=== PATIENT | female | born 1945 | race Caucasian/White ===

== ENCOUNTER → 2016-11-13 | Outpatient (CLI) | payer MEDICARE, OTHER ==
--- NOTE | 2016-11-13 09:23 | REPMRS ---
Patient History The patient states she has not had a clinical breast exam in over a year. No known family history of cancer. Digital Mammo Screening Bilat: November 13, 2016 - Exam #: [id number] Bilateral CC and MLO view(s) were taken. Technologist: Malissa Ramírez, Technologist Prior study comparison: November 10, 2015, bilateral digital mammo screening bilat performed at [facility]. October 18, 2014, bilateral digital mammo screening bilat performed at [facility]. FINDINGS: There are scattered fibroglandular densities. There has been no change in the appearance of the mammogram from the prior studies. There is a mild amount of residual fibroglandular tissue which is fairly symmetric. There is no interval development of dominant mass, architectural distortion, or clustered microcalcification suggestive of malignancy. ASSESSMENT: BI-RADS/ACR category 1 mammogram. Negative. Recommendation Routine screening mammogram in 1 year (for women over age 40). This mammogram was interpreted with the aid of an FDA-approved computer-aided dectection system. Electronically Signed By: Ethan Kaufman MD 11/13/16 0923
== END ==
LOC: M RAD 08:15
PROVIDERS: ATTEND Nurse Practitioner Family
DX: Z12.31 Encounter for screening mammogram for malignant neoplasm of breast (principal)

== ENCOUNTER → 2017-09-10 | Outpatient (REF) | payer MEDICARE, OTHER | LOC: M LAB REF 18:07 | DX: D23.12 Other benign neoplasm of skin of left eyelid, including canthus (principal) | CPT/HCPCS: 88305 ==

== ENCOUNTER → 2017-11-14 | Outpatient (CLI) | payer MEDICARE, OTHER | LOC: M RAD 09:55 | DX: N64.59 Other signs and symptoms in breast (principal) | CPT/HCPCS: 77066 ==

== ENCOUNTER → 2018-11-18 | Outpatient (CLI) | payer MEDICARE, OTHER ==
--- NOTE | 2018-11-18 15:15 | REPMRS ---
Patient History The patient states she has not had a clinical breast exam in over a year. No known family history of cancer. 3D TOMOSYNTHESIS WAS PERFORMED. Digital Mammo Screening Bilat: November 18, 2018 - Exam #: [id number] Bilateral CC and MLO view(s) were taken. Technologist: Mee Camacho, Technologist Prior study comparison: November 14, 2017, digital mammo diagnostic bilateral performed at [facility]. November 13, 2016, bilateral digital mammo screening bilat performed at [facility]. FINDINGS: There are scattered fibroglandular densities. There has been no change in the appearance of the mammogram from the prior studies. There is a mild amount of residual fibroglandular tissue which is fairly symmetric. There is no interval development of dominant mass, architectural distortion, or clustered microcalcification suggestive of malignancy. Assessment: BI-RADS/ACR category 1 mammogram. Negative Mammogram. Recommendation Routine screening mammogram in 1 year (for women over age 40). This mammogram was interpreted with the aid of an FDA-approved computer-aided dectection system. Electronically Signed By: Ethan Kaufman MD 11/18/18 0371
== END ==
LOC: M RAD 14:21
PROVIDERS: ATTEND Internal Medicine
DX: Z12.31 Encounter for screening mammogram for malignant neoplasm of breast (principal)

== ENCOUNTER → 2019-06-05 | Outpatient (REF) | payer MEDICARE, OTHER ==
[2019-06-09 00:06] LABS: Lyme Disease IgG/IgM Antibodie <0.91 ISR (0.00-0.90); Lyme Disease IgM Ab Quantitati <0.80 index (0.00-0.79)
== END ==
LOC: M LAB REF 16:50
PROVIDERS: ATTEND Registered Nurse
DX: D48.5 Neoplasm of uncertain behavior of skin (principal); S30.861A Insect bite (nonvenomous) of abdominal wall, initial encounter

== ENCOUNTER → 2020-04-08 | Outpatient (CLI) | payer MEDICARE, OTHER ==
--- NOTE | 2020-04-26 08:33 | REPMRS ---
Patient History The patient states she has not had a clinical breast exam in over a year. No known family history of cancer. Digital Woman Screen Mammo: April 08, 2020 - Exam #: [id number] Bilateral CC and MLO view(s) were taken. Technologist: Malissa Ramírez, Technologist Prior study comparison: November 18, 2018, bilateral digital mammo screening bilat performed at [facility]. November 14, 2017, digital mammo diagnostic bilateral performed at [facility]. November 13, 2016, bilateral digital mammo screening bilat performed at [facility]. FINDINGS: The breast tissue is almost entirely fat. The Volpara volumetric breast density category is: A. There has been no change in the appearance of the mammogram from the prior studies. There is no interval development of dominant mass, architectural distortion, or grouped microcalcification typical of malignancy. 3-D tomosynthesis shows no additional findings. Assessment: BI-RADS/ACR category 1 mammogram. Negative Mammogram. Recommendation Routine screening mammogram of both breasts in 1 year (for women over age 40). This patient's Lifetime Breast Cancer RIsk is estimated at 2.9 %. This mammogram was interpreted with the aid of an FDA-approved computer-aided dectection system. Electronically Signed By: Miguel Adame MD 04/26/20 0891
== END ==
LOC: M WHC 13:17
PROVIDERS: ATTEND Internal Medicine
DX: Z12.31 Encounter for screening mammogram for malignant neoplasm of breast (principal)

== ENCOUNTER → 2021-05-09 | Outpatient (CLI) | payer MEDICARE, OTHER ==
--- NOTE | 2021-05-09 15:19 | REPMRS ---
Patient History The patient states she has not had a clinical breast exam in over a year. No known family history of cancer. 10 lb unintentional weight loss. Moderna vaccine 10/27/20 left arm. 11/29/20 left arm. Patient states no breast complaints today. Patient has signed MRS History Sheet. Digital Woman Screen Mammo: May 09, 2021 - Exam #: [id number] Bilateral CC and MLO view(s) were taken. Technologist: RT Timo Prior study comparison: April 08, 2020, bilateral digital woman screen mammo performed at [facility]. November 18, 2018, bilateral digital mammo screening bilat, performed at [facility]. FINDINGS: There are scattered fibroglandular densities. Screening. Digital screening (2D) mammography was performed bilaterally in the CC and MLO projections. Additionally, breast tomosynthesis (3D mammography) was performed bilaterally in the CC and MLO projections. Todays exam was compared to the prior exam/exams. By history, the patient has no complaints of a palpable breast abnormality or other significant breast complaints. The breasts are unchanged in size and shape. There are no teofilo-soft tissue densities or spiculated masses. There is no internal architectural distortion. Once again, stable benign appearing calcifications are seen.There are no suspicious teofilo-calcific clusters. Skin thickening or nipple retraction is not present. IMPRESSION: BI-RADS Category 2- Benign Findings. There is no evidence of malignant alteration of the breasts. Followup examination recommended in one year. The Volpara volumetric breast density category is B, there are scattered areas of fibroglandular densities. This mammogram was read with the assistance of [facility] zumatek,an FDA approved computer aided detection system for mammography. The lifetime Tyrer-Cuzick score is 2.6 % Negative x-ray reports should not delay surgical consultation if a dominant or clinically suspicious mass is present. Not all breast cancers can be identified by mammography. Therefore, we recommend that you continue to perform regular breast self-examination and physical examination and then promptly contact your physician of any concerns or changes. Adenosis and dense breasts may obscure an underlying neoplasm. Assessment: BI-RADS/ACR category 2 mammogram. Benign Findings. Recommendation Routine screening mammogram of both breasts in 1 year. Electronically Signed By: Jaime Uribe DO 05/09/21 [id number]
== END ==
LOC: M WHC 11:09
PROVIDERS: ATTEND Internal Medicine
DX: Z12.31 Encounter for screening mammogram for malignant neoplasm of breast (principal)

== ENCOUNTER → 2022-06-13 | Outpatient (CLI) | payer MEDICARE, OTHER ==
[~2022-06-13] MED LIST: ADV250INH; ALBU90AE; FAMO1TAB11; FURO20TA2; LEVOTAB10; LOSA25TA13; METF500T13; MONT10TA97 PO; OMEP40CA4 PO; POTA1TAB24 PO; PRAD150C6; ROSU40TA4; SERT25TA21; TIAZ1CAP2; TIAZ1CAP4; XYZASOL2 PO
== END ==
LOC: M LABSMTC 09:56
PROVIDERS: ATTEND Anesthesiology
DX: Z01.812 Encounter for preprocedural laboratory examination (principal); Z20.822 Contact with and (suspected) exposure to COVID-19

== ENCOUNTER 2022-06-18 08:20 | Day surgery (SDC) | payer MEDICARE, OTHER ==
[~2022-06-18] VITALS: Ht 162.6 cm; Wt 95.4 kg
[~2022-06-18 08:20] MED LIST changes: +LIDOCAINE 1% 1ML PF SYRINGE (OR EYE CASES) As Ordered ONE; +LR 1,000 ML IV SCH; +PHENYLEPHRINE 2.5% OPHTH SOL 2ML OD SCH
[2022-06-18] MEDS: TETRACAINE 0.5% OPHTH SOLN 4ML OD SCH ×2 (08:49→09:09)
[2022-06-18] MEDS: FLURBIPROFEN 0.03% OPHTH SOLN 2.5 ML OD SCH ×2 (09:08→09:09)
[2022-06-18] MEDS: CYCLOPENTOLATE 1% OPHTH SOLN 2 ML BTL OD SCH ×2 (09:08→09:09)
[2022-06-18] MEDS ORDERED: fentaNYL 100 MCG/2 ML INJECTION As Ordered ONE (09:35)
[2022-06-18] MEDS ORDERED: MIDAZOLAM INJ 2MG/2ML VIAL (J2250 PER 1MG) As Ordered ONE (09:35)
[2022-06-18 10:54] VITALS: BP 139/65
== END 2022-06-18 11:15 | disposition home or self-care (01) ==
LOC: M SDC 08:20
PROVIDERS: ATTEND Ophthalmology
DX: H25.11 Age-related nuclear cataract, right eye (principal); I11.9 Hypertensive heart disease without heart failure; J45.909 Unspecified asthma, uncomplicated; Z86.73 Personal history of transient ischemic attack (TIA), and cerebral infarction without residual deficits; Z79.899 Other long term (current) drug therapy; Z79.01 Long term (current) use of anticoagulants; Z79.51 Long term (current) use of inhaled steroids; Z88.2 Allergy status to sulfonamides
CPT/HCPCS: 66984; J2250; J3010; V2632

== ENCOUNTER → 2022-07-11 | Outpatient (CLI) | payer MEDICARE, OTHER ==
[~2022-07-11] MED LIST changes: -LIDOCAINE 1% 1ML PF SYRINGE (OR EYE CASES) As Ordered ONE; -LR 1,000 ML IV SCH; -PHENYLEPHRINE 2.5% OPHTH SOL 2ML OD SCH
== END ==
LOC: M LABSMTC 10:51
PROVIDERS: ATTEND Anesthesiology
DX: Z01.812 Encounter for preprocedural laboratory examination (principal); Z11.52 Encounter for screening for COVID-19

== ENCOUNTER → 2022-08-03 | Outpatient (CLI) | payer MEDICARE, OTHER ==
[~2022-08-03] MED LIST changes: -ADV250INH; +ADV250INH INH; -ALBU90AE; +ALBU90AE INH; -FURO20TA2; +FURO20TA2 PO; -LOSA25TA13; +LOSA25TA13 PO; -METF500T13; +METF500T13 PO; -PRAD150C6; +PRAD150C6 PO; -ROSU40TA4; +ROSU40TA4 PO; -SERT25TA21; +SERT25TA21 PO; -TIAZ1CAP2; +TIAZ1CAP2 PO; -TIAZ1CAP4; +TIAZ1CAP4 PO
== END ==
LOC: M WHC 12:55
PROVIDERS: ATTEND Internal Medicine
DX: Z12.31 Encounter for screening mammogram for malignant neoplasm of breast (principal)

== ENCOUNTER → 2022-08-08 | Outpatient (CLI) | payer MEDICARE, OTHER | LOC: M LABSMTC 09:49 | PROVIDERS: ATTEND Anesthesiology | DX: Z01.812 Encounter for preprocedural laboratory examination (principal); Z11.52 Encounter for screening for COVID-19 ==

== ENCOUNTER → 2022-09-12 | Outpatient (CLI) | payer MEDICARE, OTHER | LOC: M LABSMTC 11:09 | PROVIDERS: ATTEND Anesthesiology | DX: Z01.812 Encounter for preprocedural laboratory examination (principal); Z20.822 Contact with and (suspected) exposure to COVID-19 ==

== ENCOUNTER 2022-09-17 06:43 | Day surgery (SDC) | payer MEDICARE, OTHER ==
[~2022-09-17] VITALS: Ht 162.6 cm; Wt 99.8 kg
[~2022-09-17 06:43] MED LIST changes: +CYCLOPENTOLATE 1% OPHTH SOLN 2ML BTL OS SCH; +FLURBIPROFEN 0.03% OPHTH SOLN 2.5 ML OS SCH; +LIDOCAINE 1% SDV 5ML VIAL As Ordered ONE; +PHENYLEPHRINE 2.5% OPHTH SOL 2ML OS SCH; +TETRACAINE 0.5% OPHTH SOLN 4ML OS SCH
[2022-09-17] MEDS ORDERED: LR 1,000 ML IV SCH (07:00)
[2022-09-17] MEDS ORDERED: MIDAZOLAM INJ 2MG/2ML VIAL As Ordered ONE (08:41)
[2022-09-17] MEDS ORDERED: ESMOLOL INJ 100MG/10ML VIAL As Ordered ONE (08:44)
[2022-09-17] MEDS ORDERED: hydrALAZINE 20MG/ML 1ML VIAL As Ordered ONE (08:54)
[2022-09-17 09:51] VITALS: BP 136/81
== END 2022-09-17 09:51 | disposition home or self-care (01) ==
LOC: M SDC 06:43
PROVIDERS: ATTEND Ophthalmology
DX: H25.812 Combined forms of age-related cataract, left eye (principal); I48.91 Unspecified atrial fibrillation; E11.9 Type 2 diabetes mellitus without complications; Z88.8 Allergy status to other drugs, medicaments and biological substances; Z79.84 Long term (current) use of oral hypoglycemic drugs; Z79.899 Other long term (current) drug therapy
CPT/HCPCS: 66984; V2632

== ENCOUNTER → 2023-08-27 | Outpatient (CLI) | payer OTHER ==
[~2023-08-27] MED LIST changes: -CYCLOPENTOLATE 1% OPHTH SOLN 2ML BTL OS SCH; -FLURBIPROFEN 0.03% OPHTH SOLN 2.5 ML OS SCH; -LIDOCAINE 1% SDV 5ML VIAL As Ordered ONE; -PHENYLEPHRINE 2.5% OPHTH SOL 2ML OS SCH; -TETRACAINE 0.5% OPHTH SOLN 4ML OS SCH
== END ==
LOC: M WHC 11:10
PROVIDERS: ATTEND Internal Medicine
DX: Z12.31 Encounter for screening mammogram for malignant neoplasm of breast (principal)

== ENCOUNTER → 2023-10-17 | Outpatient (REF) | payer OTHER ==
[2023-10-17 15:42] LABS: RSV AMPLIFICATION NEGATIVE (NEGATIVE)
== END ==
LOC: M LAB REF 14:25
PROVIDERS: ATTEND Nurse Practitioner Family
DX: R06.02 Shortness of breath (principal); R06.2 Wheezing; I27.20 Pulmonary hypertension, unspecified

== ENCOUNTER → 2023-10-19 | Outpatient (CLI) | payer OTHER | LOC: M RAD 13:42 | PROVIDERS: ATTEND Internal Medicine | DX: I27.20 Pulmonary hypertension, unspecified (principal) ==

== ENCOUNTER 2023-11-28 22:22 | Inpatient (IN) | payer OTHER ==
[~2023-11-28] VITALS: Ht 165.1 cm; Wt 92.0 kg
[2023-11-29] VITALS (14 sets, daily range): BP systolic 128–176; BP diastolic 66–106; TEMP 97.4–97.8; O2SAT 89–96
[2023-11-29 02:13] LABS: BASO % 0.7 % (0.0-1.0); EOS # 0.2 10^3/uL (0.0-0.5); HEMATOCRIT 45.9 % (36.0-47.0); LYMPH # 0.8 10^3/uL (1.5-5.0); LYMPH % 14.7 % (24.0-44.0); MEAN CORPUSCULAR HEMOGLOBIN 28.6 pg (27.0-33.0); MEAN CORPUSCULAR HGB CONC 32.7 g/dl (32.0-36.5); MEAN CORPUSCULAR VOLUME 87.6 fl (80.0-96.0); MONO # 0.5 10^3/uL (0.0-0.8); MONO % 8.4 % (2.0-8.0); NEUTROPHILS # 3.9 10^3/uL (1.5-8.5); NEUTROPHILS % 71.8 % (36.0-66.0); PLATELET COUNT, AUTOMATED 233 10^3/uL (150-450); RED BLOOD COUNT 5.24 10^6/uL (4.00-5.40); WHITE BLOOD COUNT 5.5 10^3/uL (4.0-10.0)
[2023-11-29 02:39] LABS: ALBUMIN 3.6 G/DL (3.2-5.2); ALKALINE PHOSPHATASE 75 U/L (46-116); ALT/SGPT 11 U/L (7.0-40); AST/SGOT 19 U/L (<34); BILIRUBIN,DIRECT 0.3 MG/DL (<0.4); BILIRUBIN,TOTAL 0.8 MG/DL (0.3-1.2); BLOOD UREA NITROGEN 12 MG/DL (9-23); CALCIUM LEVEL 8.6 MG/DL (8.3-10.6); CARBON DIOXIDE LEVEL 26 MMOL/L (20-31); CHLORIDE LEVEL 98 MMOL/L (98-107); CK-MB VALUE MASS 3.7 NG/ML (<3.6); CPK CREATINE PHOSPHOKINASE 119 U/L (34-145); CREATININE FOR GFR 0.87 MG/DL (0.55-1.30); GLOMERULAR FILTRATION RATE > 60.0 (>39); GLUCOSE, FASTING 151 MG/DL (74-106); POTASSIUM SERUM 3.5 MMOL/L (3.5-5.1); SODIUM LEVEL 132 MMOL/L (136-145); TOTAL PROTEIN 7.1 G/DL (5.7-8.2)
[2023-11-29] MEDS ORDERED: ISOVUE-370 76% 100ML VIAL As Ordered ONE (03:12)
[2023-11-29] MEDS: PIPERACILLIN/TAZOBACTAM SOD 4.5 GM in D5W MINI-BAG PLUS 50 ML IV ONE (03:15)
[2023-11-29] MEDS: dilTIAZem 25MG/5ML VIAL IV STA (03:18)
[2023-11-29] MEDS: FUROSEMIDE 40MG/4ML VIAL IV ONE (03:18)
[2023-11-29] MEDS: ACETAMINOPHEN TAB 650MG DOSE (2X325MG) PO ONE (03:18)
[2023-11-29] MEDS: IPRATROPIUM 0.5MG/ALBUTEROL 2.5MG INH SOL UD 3ML (DUONEB) NEB ONE (03:58)
[2023-11-29] MEDS ORDERED: MOM 30ML SUSPENSION UDC PO PRN (05:30)
[2023-11-29] MEDS ORDERED: MAALOX 30 ML SUSP *UDC PO PRN (05:30)
[2023-11-29] MEDS: AZITHROMYCIN 250MG TABLET PO SCH (06:26)
[2023-11-29] MEDS: cefTRIAXone SOD 1 GM in D5W MINI-BAG PLUS 50 ML IV SCH (06:26)
[2023-11-29] MEDS: methylPREDNISolone 40MG 1ML VIAL IV SCH (06:26)
[2023-11-29 06:33] LABS: THYROID STIMULATING HORMONE 4.333 uIU/ML (0.55-4.78)
[2023-11-29 06:36] LABS: HEMOGLOBIN A1c 6.9 % (4.0-6.0)
[2023-11-29 07:10] LABS: VENOUS BASE EXCESS 0.1 (-2.0-2.0); VENOUS HCO3 24.7 MMOL/L (23.0-27.0); VENOUS PARTIAL PRESSURE CO2 40.2 mmHg (38.0-50.0); VENOUS PARTIAL PRESSURE O2 62.6 mmHg (30.0-50.0); VENOUS PH 7.407 UNITS (7.330-7.430); VENOUS STANDARD HCO3 24.5 MMOL/L
[2023-11-29 07:24] LABS: HEMATOCRIT 43.4 % (36.0-47.0); MEAN CORPUSCULAR HEMOGLOBIN 28.4 pg (27.0-33.0); MEAN CORPUSCULAR HGB CONC 32.3 g/dl (32.0-36.5); PLATELET COUNT, AUTOMATED 219 10^3/uL (150-450); RED BLOOD COUNT 4.93 10^6/uL (4.00-5.40); WHITE BLOOD COUNT 5.8 10^3/uL (4.0-10.0)
[2023-11-29] MEDS ORDERED: MED REC IN PROGRESS XX SCH (07:25)
[2023-11-29 07:41] LABS: CPK CREATINE PHOSPHOKINASE 107 U/L (34-145)
[2023-11-29 07:42] LABS: ALBUMIN 3.2 G/DL (3.2-5.2); ALKALINE PHOSPHATASE 67 U/L (46-116); ALT/SGPT 11 U/L (7.0-40); AST/SGOT 19 U/L (<34); BILIRUBIN,TOTAL 1.1 MG/DL (0.3-1.2); BLOOD UREA NITROGEN 12 MG/DL (9-23); CARBON DIOXIDE LEVEL 27 MMOL/L (20-31); CHLORIDE LEVEL 98 MMOL/L (98-107); CK-MB VALUE MASS 4.8 NG/ML (<3.6); CREATININE FOR GFR 0.94 MG/DL (0.55-1.30); GLOMERULAR FILTRATION RATE > 60.0 (>39); GLUCOSE, FASTING 203 MG/DL (74-106); MB/CK RELATIVE INDEX 4.48 (< OR =4); POTASSIUM SERUM 3.1 MMOL/L (3.5-5.1); SODIUM LEVEL 132 MMOL/L (136-145); TOTAL PROTEIN 6.6 G/DL (5.7-8.2)
[2023-11-29] MEDS: ADVAIR HFA 115/21MCG INHALER INH SCH (08:00)
[2023-11-29] MEDS ORDERED: DILT180C38 PO (09:08)
[2023-11-29] MEDS ORDERED: ALBU8.5H INH (09:08)
[2023-11-29] MEDS ORDERED: FAMO1TAB11 PO (09:08)
[2023-11-29] MEDS ORDERED: DILT1TAB12 PO (09:08)
[2023-11-29] MEDS ORDERED: FLON1SPR NARES (09:08)
[2023-11-29] MEDS ORDERED: LOSA50TA28 PO (09:08)
[2023-11-29] MEDS ORDERED: LEVOTAB10 PO (09:08)
[2023-11-29] MEDS ORDERED: FLUT1BLS2 INH (09:08)
[2023-11-29] MEDS: IPRATROPIUM 0.5MG/ALBUTEROL 2.5MG INH SOL UD 3ML (DUONEB) INH SCH (09:09)
[2023-11-29] MEDS ORDERED: HOME MED LIST COMPLETE! XX SCH (09:10)
[2023-11-29] MEDS: PANTOPRAZOLE 40MG TAB (PROTONIX) PO SCH (10:01)
[2023-11-29] MEDS: guaiFENesin ER TABLET 600 MG TAB PO SCH (10:01)
[2023-11-29] MEDS: DOCUSATE SODIUM 100MG CAPSULE PO SCH (10:01)
[2023-11-29] MEDS: FUROSEMIDE 20MG/2ML VIAL IV SCH (10:02)
[2023-11-29] MEDS: NYSTATIN 100,000 UNITS/GM TOPICAL PWD 15GM TOP SCH (10:44)
[2023-11-29] MEDS: dilTIAZem **CD** 180MG CAP PO SCH (10:44)
[2023-11-29] MEDS: DABIGATRAN ETEXILATE 75 MG CAP (PRADAXA) PO SCH (10:45)
[2023-11-29] MEDS: SERTRALINE HCL 25 MG TABLET PO SCH (10:45)
[2023-11-29] MEDS: POTASSIUM CHLORIDE 10% LIQ 20MEQ/15ML UDC PO SCH ×2 (10:49→15:35)
[2023-11-29] MEDS: LOSARTAN 50MG TABLET PO SCH (10:50)
[2023-11-29] MEDS: MONTELUKAST 10 MG TAB PO SCH (10:50)
[2023-11-29] MEDS: ROSUVASTATIN 10 MG TAB (CRESTOR) PO SCH (10:50)
[2023-11-29] MEDS: FAMOTIDINE 20 MG TAB PO SCH (10:51)
[2023-11-29] MEDS: hydrALAZINE 20MG/ML 1ML VIAL IV PRN (15:35)
[2023-11-29] MEDS: ACETAMINOPHEN TAB 650MG DOSE (2X325MG) PO PRN (15:36)
[2023-11-29] MEDS: hydrALAZINE 20MG/ML 1ML VIAL IV ONE (19:30)
[2023-11-29] MEDS ORDERED: MONTELUKAST 10 MG TAB PO SCH (21:00)
[2023-11-30] VITALS (28 sets, daily range): BP systolic 56–156; BP diastolic 58–88; TEMP 97.4–97.8; O2SAT 88–95
[2023-11-30 06:24] LABS: HEMOGLOBIN 15.4 g/dl (12.0-15.5); MEAN CORPUSCULAR HEMOGLOBIN 28.8 pg (27.0-33.0); MEAN CORPUSCULAR HGB CONC 32.8 g/dl (32.0-36.5); PLATELET COUNT, AUTOMATED 235 10^3/uL (150-450); RED BLOOD COUNT 5.34 10^6/uL (4.00-5.40); WHITE BLOOD COUNT 4.8 10^3/uL (4.0-10.0)
[2023-11-30 06:43] LABS: ALBUMIN 3.4 G/DL (3.2-5.2); ALKALINE PHOSPHATASE 64 U/L (46-116); ALT/SGPT < 9 U/L (7.0-40); AST/SGOT 17 U/L (<34); BILIRUBIN,TOTAL 0.6 MG/DL (0.3-1.2); BLOOD UREA NITROGEN 19 MG/DL (9-23); CALCIUM LEVEL 8.7 MG/DL (8.3-10.6); CARBON DIOXIDE LEVEL 27 MMOL/L (20-31); CHLORIDE LEVEL 100 MMOL/L (98-107); CREATININE FOR GFR 1.03 MG/DL (0.55-1.30); GLUCOSE, FASTING 251 MG/DL (74-106); POTASSIUM SERUM 3.5 MMOL/L (3.5-5.1); SODIUM LEVEL 133 MMOL/L (136-145); TOTAL PROTEIN 7.2 G/DL (5.7-8.2)
[2023-11-30] MEDS ORDERED: GLUCOSE 4GM CHEW TABLET PO PRN (07:05)
[2023-11-30] MEDS ORDERED: GLUCAGON INJ 1MG VIAL SC PRN (07:05)
[2023-11-30] MEDS ORDERED: DEXTROSE 50% 50ML SYRINGE IV PRN (07:05)
[2023-11-30] MEDS: INSULIN LISPRO (NovoLOG) PER UNIT SC SCH ×2 (09:01→20:24)
[2023-11-30] MEDS: OMEPRAZOLE 20MG CAP PO SCH (09:02)
[2023-11-30] MEDS: dilTIAZem 60 MG TAB PO SCH (09:03)
[2023-11-30] MEDS: LEVEMIR (INSULIN DETEMIR) 1 UNITS/0.01ML SC SCH (16:29)
[2023-12-01] VITALS (14 sets, daily range): BP systolic 146–162; BP diastolic 70–86; TEMP 97–97.7; O2SAT 90–95
[2023-12-01 05:59] LABS: HEMATOCRIT 45.2 % (36.0-47.0); HEMOGLOBIN 14.9 g/dl (12.0-15.5); MEAN CORPUSCULAR HEMOGLOBIN 28.5 pg (27.0-33.0); MEAN CORPUSCULAR VOLUME 86.4 fl (80.0-96.0); PLATELET COUNT, AUTOMATED 242 10^3/uL (150-450); RED BLOOD COUNT 5.23 10^6/uL (4.00-5.40); WHITE BLOOD COUNT 9.6 10^3/uL (4.0-10.0)
[2023-12-01 06:29] LABS: ALBUMIN 3.3 G/DL (3.2-5.2); BILIRUBIN,TOTAL 0.5 MG/DL (0.3-1.2); CALCIUM LEVEL 8.7 MG/DL (8.3-10.6); CREATININE FOR GFR 1.22 MG/DL (0.55-1.30); GLOMERULAR FILTRATION RATE 45.3 (>39); POTASSIUM SERUM 3.9 MMOL/L (3.5-5.1); TOTAL PROTEIN 6.5 G/DL (5.7-8.2)
[2023-12-01] MEDS: predniSONE 20 MG TAB PO SCH (08:45)
[2023-12-01] MEDS: FUROSEMIDE 20 MG TAB PO SCH (08:45)
[2023-12-01] MEDS: ALBUTEROL SULFATE 2.5MG/0.5ML INH NEB SOLN NEB PRN (21:17)
[2023-12-02 03:58] VITALS: BP 155/78; TEMP 97.6; O2SAT 95
[2023-12-02 04:44] LABS: HEMATOCRIT 42.8 % (36.0-47.0); HEMOGLOBIN 14.1 g/dl (12.0-15.5); MEAN CORPUSCULAR HEMOGLOBIN 28.4 pg (27.0-33.0); MEAN CORPUSCULAR HGB CONC 32.9 g/dl (32.0-36.5); MEAN CORPUSCULAR VOLUME 86.1 fl (80.0-96.0); PLATELET COUNT, AUTOMATED 256 10^3/uL (150-450); RED BLOOD COUNT 4.97 10^6/uL (4.00-5.40); WHITE BLOOD COUNT 11.9 10^3/uL (4.0-10.0)
[2023-12-02 05:22] LABS: ALBUMIN 3.1 G/DL (3.2-5.2); BILIRUBIN,TOTAL 0.4 MG/DL (0.3-1.2); CALCIUM LEVEL 7.9 MG/DL (8.3-10.6); CREATININE FOR GFR 1.33 MG/DL (0.55-1.30); POTASSIUM SERUM 4.2 MMOL/L (3.5-5.1); TOTAL PROTEIN 6.3 G/DL (5.7-8.2)
[2023-12-02] MEDS: NS 1,000 ML IV SCH (07:27)
[2023-12-02 07:43] VITALS: BP 146/72; TEMP 97.4; O2SAT 95
[2023-12-02] MEDS: LEVEMIR (INSULIN DETEMIR) 1 UNITS/0.01ML SC SCH (08:57)
[2023-12-02 16:07] VITALS: BP 129/58; TEMP 97.3; O2SAT 95
[2023-12-02] MEDS: BENZONATATE 100MG CAPSULE PO PRN (21:05)
[2023-12-02 23:49] VITALS: BP 172/76; TEMP 97.6; O2SAT 95
[2023-12-03 05:25] LABS: HEMATOCRIT 45.2 % (36.0-47.0); HEMOGLOBIN 15.1 g/dl (12.0-15.5); MEAN CORPUSCULAR HEMOGLOBIN 28.6 pg (27.0-33.0); MEAN CORPUSCULAR HGB CONC 33.4 g/dl (32.0-36.5); MEAN CORPUSCULAR VOLUME 85.6 fl (80.0-96.0); PLATELET COUNT, AUTOMATED 258 10^3/uL (150-450); RED BLOOD COUNT 5.28 10^6/uL (4.00-5.40)
[2023-12-03 05:51] VITALS: BP 160/95
[2023-12-03 06:03] LABS: ALBUMIN 3.4 G/DL (3.2-5.2); BILIRUBIN,TOTAL 0.4 MG/DL (0.3-1.2); CALCIUM LEVEL 8.3 MG/DL (8.3-10.6); CREATININE FOR GFR 1.08 MG/DL (0.55-1.30); GLOMERULAR FILTRATION RATE 52.1 (>39); POTASSIUM SERUM 4.3 MMOL/L (3.5-5.1); TOTAL PROTEIN 6.6 G/DL (5.7-8.2)
[2023-12-03 08:17] VITALS: BP 150/70; TEMP 97.5; O2SAT 95
[2023-12-03 16:00] VITALS: BP 155/72; TEMP 97.5; O2SAT 96
[2023-12-03] MEDS: OXYMETAZOLINE 0.05% NASAL SPRAY (AFRIN) SCH (16:53)
[2023-12-03 19:53] VITALS: BP 132/59; TEMP 97.2; O2SAT 91
[2023-12-03] MEDS: AMOXICILLIN 250 MG CAP PO SCH (22:30)
[2023-12-04] VITALS (7 sets, daily range): BP systolic 152–185; BP diastolic 66–98; TEMP 97.2–98.5; O2SAT 93–97
[2023-12-04 07:05] LABS: ALBUMIN 3.5 G/DL (3.2-5.2); BILIRUBIN,TOTAL 0.4 MG/DL (0.3-1.2); CALCIUM LEVEL 8.4 MG/DL (8.3-10.6); GLOMERULAR FILTRATION RATE 56.9 (>39); POTASSIUM SERUM 4.5 MMOL/L (3.5-5.1); TOTAL PROTEIN 6.4 G/DL (5.7-8.2)
[2023-12-04 07:37] LABS: HEMATOCRIT 45.5 % (36.0-47.0); HEMOGLOBIN 14.8 g/dl (12.0-15.5)
[2023-12-04] MEDS: **hydrALAZINE** 10 MG TAB PO SCH (20:17)
[2023-12-05] VITALS (7 sets, daily range): BP systolic 126–182; BP diastolic 68–102; TEMP 97.3–97.6; O2SAT 93–95
[2023-12-05] MEDS: LOSARTAN 50MG TABLET PO SCH (08:11)
[2023-12-05] MEDS ORDERED: LIDOCAINE 2% JELLY 6ML SYRINGE TOP STA (09:55)
[2023-12-05] MEDS ORDERED: SILVER NITRATE APPLICATOR (1 = QTY 10) TOP STA (09:55)
[2023-12-05] MEDS ORDERED: PRED10PA PO (11:30)
[2023-12-05] MEDS: **hydrALAZINE HCL** 25 MG TAB PO STA (12:02)
[2023-12-05] MEDS ORDERED: HYDR-161 PO (15:57)
[2023-12-05] MEDS ORDERED: BLOOMIS12 XX (16:04)
== END 2023-12-05 17:44 | disposition home health service (06) | DRG 202 ==
LOC: M ED 22:22 → M ED INP 11-29 05:27 → M PCU 11-29 14:36
PROVIDERS: ADMIT Preventive Medicine Undersea and Hyperbaric Medicine; ATTEND Student in an Organized Health Care Education/Training Program
PROC: B246ZZZ Ultrasonography of Right and Left Heart (ICD-10-PCS; principal; 2023-11-29)
PROC: 2Y41X5Z Packing of Nasal Region using Packing Material (ICD-10-PCS; 2023-12-03)
DX: J45.901 Unspecified asthma with (acute) exacerbation (principal); J96.01 Acute respiratory failure with hypoxia; I16.1 Hypertensive emergency; J44.1 Chronic obstructive pulmonary disease with (acute) exacerbation; I50.32 Chronic diastolic (congestive) heart failure; B97.81 Human metapneumovirus as the cause of diseases classified elsewhere; I11.0 Hypertensive heart disease with heart failure; R04.0 Epistaxis; F39 Unspecified mood [affective] disorder; E78.5 Hyperlipidemia, unspecified; I48.91 Unspecified atrial fibrillation; L89.312 Pressure ulcer of right buttock, stage 2; R73.03 Prediabetes; Z86.73 Personal history of transient ischemic attack (TIA), and cerebral infarction without residual deficits; Z98.49 Cataract extraction status, unspecified eye; Z87.891 Personal history of nicotine dependence; Z79.84 Long term (current) use of oral hypoglycemic drugs; Z79.899 Other long term (current) drug therapy; Z88.2 Allergy status to sulfonamides; Z88.5 Allergy status to narcotic agent

== ENCOUNTER → 2024-01-30 | Outpatient (REF) | payer OTHER ==
[~2024-01-30] MED LIST changes: +ALBU8.5H INH; -ALBU90AE INH; +ALBU90AE2 INH; +BLOOMIS12 XX; +DILT180C38 PO; +DILT1TAB12 PO; +FAMO1TAB11 PO; +FLON1SPR NARES; +FLUT1BLS2 INH; +HYDR-161 PO; +LEVOTAB10 PO; +LOSA50TA28 PO; +PRED10PA PO; -ROSU40TA4 PO; +ROSU40TA63 PO
[2024-01-30 18:17] LABS: APPEARANCE, URINE HAZY (CLEAR); BACTERIA, URINE AUTO NEGATIVE (NEGATIVE); BILIRUBIN, URINE AUTO NEGATIVE (NEGATIVE); BLOOD, URINE BLOOD NEGATIVE (NEGATIVE); COLOR, URINE YELLOW (YELLOW); GLUCOSE, URINE (UA) AUTO NEGATIVE (NEGATIVE); KETONE, URINE AUTO NEGATIVE (NEGATIVE); LEUKOCYTE ESTERASE, URINE AUTO 1+ (NEGATIVE); MUCUS, URINE SMALL (NEGATIVE); NITRITE, URINE AUTO NEGATIVE (NEGATIVE); PROTEIN, URINE AUTO NEGATIVE (NEGATIVE); RBC, URINE AUTO 0 /HPF (0-3); SQUAMOUS EPITHELIAL CELL UR AU 5 /HPF (0-6); UROBILINOGEN, URINE AUTO 0.2 mg/dL (0.0-2.0); WBC, URINE AUTO 6 /HPF (0-3)
[2024-01-30 18:23] LABS: BASO # 0.1 10^3/uL (0.0-0.2); EOS # 0.1 10^3/uL (0.0-0.5); EOS % 2.4 % (0.0-3.0); HEMATOCRIT 42.8 % (36.0-47.0); HEMOGLOBIN 13.6 g/dl (12.0-15.5); LYMPH # 0.8 10^3/uL (1.5-5.0); LYMPH % 14.7 % (24.0-44.0); MEAN CORPUSCULAR HEMOGLOBIN 28.6 pg (27.0-33.0); MEAN CORPUSCULAR HGB CONC 31.8 g/dl (32.0-36.5); MEAN CORPUSCULAR VOLUME 89.9 fl (80.0-96.0); MONO # 0.4 10^3/uL (0.0-0.8); NEUTROPHILS # 4.3 10^3/uL (1.5-8.5); NEUTROPHILS % 74.7 % (36.0-66.0); PLATELET COUNT, AUTOMATED 227 10^3/uL (150-450); RED BLOOD COUNT 4.76 10^6/uL (4.00-5.40); WHITE BLOOD COUNT 5.7 10^3/uL (4.0-10.0)
[2024-01-30 19:01] LABS: THYROID STIMULATING HORMONE 4.514 uIU/ML (0.55-4.78)
[2024-01-30 19:03] LABS: ALBUMIN 3.8 G/DL (3.2-5.2); ALKALINE PHOSPHATASE 69 U/L (46-116); ALT/SGPT 14 U/L (7.0-40); AST/SGOT 16 U/L (<34); BILIRUBIN,TOTAL 1.3 MG/DL (0.3-1.2); BLOOD UREA NITROGEN 9 MG/DL (9-23); CALCIUM LEVEL 8.7 MG/DL (8.3-10.6); CARBON DIOXIDE LEVEL 29 MMOL/L (20-31); CHLORIDE LEVEL 105 MMOL/L (98-107); CREATININE FOR GFR 0.81 MG/DL (0.55-1.30); GLOMERULAR FILTRATION RATE > 60.0 (>39); GLUCOSE, FASTING 137 MG/DL (74-106); MAGNESIUM LEVEL 1.9 MG/DL (1.8-2.4); POTASSIUM SERUM 3.3 MMOL/L (3.5-5.1); SODIUM LEVEL 142 MMOL/L (136-145); TOTAL PROTEIN 6.9 G/DL (5.7-8.2)
== END ==
LOC: M LABDRWCV 16:35
PROVIDERS: ATTEND Physician Assistant Medical
DX: R53.83 Other fatigue (principal); I13.0 Hypertensive heart and chronic kidney disease with heart failure and stage 1 through stage 4 chronic kidney disease, or unspecified chronic kidney disease; J44.9 Chronic obstructive pulmonary disease, unspecified; R53.1 Weakness

== ENCOUNTER 2024-03-28 11:51 | Observation (INO) | payer OTHER ==
[~2024-03-28] VITALS: Ht 165.1 cm; Wt 90.9 kg
[2024-03-28] MEDS ORDERED: ISOVUE-370 76% 100ML VIAL As Ordered ONE (12:26)
[2024-03-28 12:32] LABS: BASO # 0.1 10^3/uL (0.0-0.2); BASO % 0.8 % (0.0-1.0); EOS # 0.3 10^3/uL (0.0-0.5); EOS % 3.4 % (0.0-3.0); HEMATOCRIT 43.5 % (36.0-47.0); LYMPH # 1.1 10^3/uL (1.5-5.0); LYMPH % 15.7 % (24.0-44.0); MEAN CORPUSCULAR HGB CONC 32.2 g/dl (32.0-36.5); MONO # 0.5 10^3/uL (0.0-0.8); NEUTROPHILS # 5.3 10^3/uL (1.5-8.5); NEUTROPHILS % 72.8 % (36.0-66.0); PLATELET COUNT, AUTOMATED 225 10^3/uL (150-450); WHITE BLOOD COUNT 7.3 10^3/uL (4.0-10.0)
[2024-03-28 12:45] LABS: INR 2.01; PARTIAL THROMBOPLASTIN TIME 56.2 SECONDS (24.8-34.2); PROTHROMBIN TIME 22.1 SECONDS (12.5-14.5)
[2024-03-28] MEDS: NS 500 ML IV ONE (12:58)
[2024-03-28 13:24] LABS: ALBUMIN 3.9 G/DL (3.2-5.2); ALKALINE PHOSPHATASE 67 U/L (46-116); ALT/SGPT 12 U/L (7.0-40); AST/SGOT 24 U/L (<34); BILIRUBIN,DIRECT 0.1 MG/DL (<0.4); BILIRUBIN,TOTAL 0.6 MG/DL (0.3-1.2); BLOOD UREA NITROGEN 24 MG/DL (9-23); CALCIUM LEVEL 8.5 MG/DL (8.3-10.6); CARBON DIOXIDE LEVEL 24 MMOL/L (20-31); CHLORIDE LEVEL 105 MMOL/L (98-107); CK-MB VALUE MASS < 1.0 NG/ML (<3.6); CPK CREATINE PHOSPHOKINASE 47 U/L (34-145); CREATININE FOR GFR 1.14 MG/DL (0.55-1.30); GLOMERULAR FILTRATION RATE 48.9 (>39); GLUCOSE, FASTING 147 MG/DL (74-106); MB/CK RELATIVE INDEX 2.12 (< OR =4); POTASSIUM SERUM 5.5 MMOL/L (3.5-5.1); SODIUM LEVEL 137 MMOL/L (136-145); TOTAL PROTEIN 6.9 G/DL (5.7-8.2)
[2024-03-28] MEDS: ASPIRIN 81MG CHEW TABLET PO ONE (14:05)
[2024-03-28] MEDS: ALPRAZolam 0.5 MG TAB PO ONE (16:34)
[2024-03-28] MEDS ORDERED: POTA10CA70 PO (20:09)
[2024-03-28] MEDS ORDERED: HOME MED LIST COMPLETE! XX SCH (20:10)
[2024-03-28] MEDS ORDERED: ACETAMINOPHEN TAB 650MG DOSE (2X325MG) PO PRN (22:00)
[2024-03-28] MEDS ORDERED: MOM 30ML SUSPENSION UDC PO PRN (22:00)
[2024-03-28] MEDS ORDERED: GLUCOSE 4 GM CHEW PO PRN (22:00)
[2024-03-28] MEDS ORDERED: DEXTROSE 50% 50ML SYRINGE IV PRN (22:00)
[2024-03-28] MEDS ORDERED: GLUCAGON INJ 1MG VIAL SC PRN (22:00)
[2024-03-28 23:05] LABS: CHOLESTEROL LEVEL 211 MG/DL (<200); HDL CHOLESTEROL 54.1 MG/DL (>40); LDL CHOLESTEROL 140.3 MG/DL (<100); NON-HDL-C 156.9 MG/DL; TRIGLYCERIDES LEVEL 83 MG/DL (<150)
[2024-03-28 23:25] LABS: HEMOGLOBIN A1c 6.5 % (4.0-6.0)
[2024-03-28] MEDS: **hydrALAZINE** 10 MG TAB PO SCH (23:51)
[2024-03-29 00:19] VITALS: BP 140/80; TEMP 97; O2SAT 96
[2024-03-29 04:00] VITALS: BP_SYST 152; BP_SYST 162; BP_DIAS 74; TEMP 96.9; O2SAT 94
[2024-03-29 05:45] LABS: HEMATOCRIT 42.4 % (36.0-47.0); HEMOGLOBIN 13.8 g/dl (12.0-15.5); MEAN CORPUSCULAR HEMOGLOBIN 28.6 pg (27.0-33.0); MEAN CORPUSCULAR HGB CONC 32.5 g/dl (32.0-36.5); PLATELET COUNT, AUTOMATED 219 10^3/uL (150-450); RED BLOOD COUNT 4.82 10^6/uL (4.00-5.40); WHITE BLOOD COUNT 6.1 10^3/uL (4.0-10.0)
[2024-03-29 06:20] LABS: ALBUMIN 3.4 G/DL (3.2-5.2); ALKALINE PHOSPHATASE 64 U/L (46-116); ALT/SGPT < 9 U/L (7.0-40); AST/SGOT 12 U/L (<34); BILIRUBIN,TOTAL 0.7 MG/DL (0.3-1.2); BLOOD UREA NITROGEN 18 MG/DL (9-23); CALCIUM LEVEL 8.8 MG/DL (8.3-10.6); CARBON DIOXIDE LEVEL 30 MMOL/L (20-31); CHLORIDE LEVEL 105 MMOL/L (98-107); GLOMERULAR FILTRATION RATE 56.9 (>39); GLUCOSE, FASTING 126 MG/DL (74-106); SODIUM LEVEL 141 MMOL/L (136-145); TOTAL PROTEIN 6.2 G/DL (5.7-8.2)
[2024-03-29 06:27] VITALS: BP 162/74
[2024-03-29] MEDS: HEPARIN SOD (PORCINE) 5000UNITS/ML 1ML VIAL/SYRINGE SC SCH (06:27)
[2024-03-29 08:00] VITALS: BP 163/79; TEMP 97.1; O2SAT 94
[2024-03-29] MEDS ORDERED: DABIGATRAN ETEXILATE 75 MG CAP (PRADAXA) PO SCH (09:00)
[2024-03-29] MEDS ORDERED: ASPI81CH33 PO (09:00)
[2024-03-29] MEDS ORDERED: EZET10TA21 PO (09:00)
[2024-03-29] MEDS: INSULIN LISPRO (NovoLOG) PER UNIT SC SCH (09:31)
[2024-03-29] MEDS: dilTIAZem 60 MG TAB PO SCH (09:31)
[2024-03-29] MEDS: ASPIRIN 81MG CHEW TABLET PO SCH (09:31)
[2024-03-29] MEDS: dilTIAZem **CD** 180MG CAP PO SCH (09:33)
[2024-03-29] MEDS: SERTRALINE HCL 25 MG TABLET PO SCH (09:34)
[2024-03-29] MEDS: LOSARTAN 50MG TABLET PO SCH (09:34)
[2024-03-29] MEDS: FAMOTIDINE 20 MG TAB PO SCH (09:34)
[2024-03-29] MEDS: DOCUSATE SODIUM 100MG CAPSULE PO SCH (09:34)
[2024-03-29] MEDS: POTASSIUM CHLORIDE 10MEQ SR TABLET PO SCH (09:34)
[2024-03-29] MEDS: FUROSEMIDE 20 MG TAB PO SCH (09:35)
[2024-03-29] MEDS ORDERED: INSULIN LISPRO (NovoLOG) PER UNIT SC SCH (21:00)
[2024-03-29] MEDS ORDERED: ATORVASTATIN 20 MG TAB PO SCH (21:00)
== END 2024-03-29 11:22 | disposition home or self-care (01) ==
LOC: M ED 11:51 → EDBD 11:51 → M ED INP 22:00 → INTOOBSV 22:00 → M PCU 03-29 00:05
PROVIDERS: ADMIT Family Medicine; ATTEND Family Medicine
DX: R53.1 Weakness (principal); R20.0 Anesthesia of skin; M79.605 Pain in left leg; R00.1 Bradycardia, unspecified; I11.0 Hypertensive heart disease with heart failure; E78.5 Hyperlipidemia, unspecified; I50.9 Heart failure, unspecified; J44.9 Chronic obstructive pulmonary disease, unspecified; I48.91 Unspecified atrial fibrillation; E87.5 Hyperkalemia; I69.398 Other sequelae of cerebral infarction; E11.9 Type 2 diabetes mellitus without complications; Z90.710 Acquired absence of both cervix and uterus; Z90.49 Acquired absence of other specified parts of digestive tract; Z98.49 Cataract extraction status, unspecified eye; Z88.2 Allergy status to sulfonamides; Z88.5 Allergy status to narcotic agent; Z79.899 Other long term (current) drug therapy; Z79.01 Long term (current) use of anticoagulants; Z79.51 Long term (current) use of inhaled steroids; Z79.84 Long term (current) use of oral hypoglycemic drugs; Z87.891 Personal history of nicotine dependence
CPT/HCPCS: 36415; 70450; 70496; 70498; 70551; 71045; 80047; 80048; 80053; 80061; 80076; 82550; 82553; 83036; 84484; 85025; 85027; 85610; 85730; 93005; 93041; 93971; 94760; 96372; 97116; 97161; 99285; G0378; J1815; Q9967

== ENCOUNTER 2024-06-10 08:09 | Inpatient (IN) | payer OTHER ==
[~2024-06-10] VITALS: Ht 162.6 cm; Wt 91.6 kg
[~2024-06-10 08:09] MED LIST changes: +ASPI81CH33 PO; +EZET10TA21 PO; +POTA10CA70 PO; -ROSU40TA63 PO; +ROSU40TA81 PO
[2024-06-10 09:21] LABS: BASO % 0.7 % (0.0-1.0); EOS # 0.1 10^3/uL (0.0-0.5); EOS % 1.3 % (0.0-3.0); HEMATOCRIT 41.9 % (36.0-47.0); HEMOGLOBIN 13.9 g/dl (12.0-15.5); LYMPH # 0.5 10^3/uL (1.5-5.0); LYMPH % 9.1 % (24.0-44.0); MEAN CORPUSCULAR HEMOGLOBIN 29.5 pg (27.0-33.0); MEAN CORPUSCULAR HGB CONC 33.2 g/dl (32.0-36.5); MONO # 0.7 10^3/uL (0.0-0.8); MONO % 12.5 % (2.0-8.0); NEUTROPHILS # 4.2 10^3/uL (1.5-8.5); NEUTROPHILS % 75.9 % (36.0-66.0); PLATELET COUNT, AUTOMATED 196 10^3/uL (150-450); RED BLOOD COUNT 4.71 10^6/uL (4.00-5.40); WHITE BLOOD COUNT 5.5 10^3/uL (4.0-10.0)
[2024-06-10 09:55] LABS: CREATININE FOR GFR 1.03 MG/DL (0.55-1.30); POTASSIUM SERUM 4.2 MMOL/L (3.5-5.1)
[2024-06-10] MEDS ORDERED: TORS20TA2 PO (11:27)
[2024-06-10] MEDS ORDERED: HYDR-161 PO (12:30)
[2024-06-10] MEDS ORDERED: EZET10TA21 PO (12:30)
[2024-06-10] MEDS ORDERED: ASPI81TA26 PO (12:30)
[2024-06-10] MEDS ORDERED: ALBU0.63 INH (12:31)
[2024-06-10] MEDS: dilTIAZem **CD** 180MG CAP PO ONE (12:45)
[2024-06-10] MEDS: TORSEMIDE 20 MG TAB PO ONE (12:46)
[2024-06-10] MEDS: LOSARTAN 50MG TABLET PO ONE (12:46)
[2024-06-10] MEDS ORDERED: MOM 30ML SUSPENSION UDC PO PRN (12:50)
[2024-06-10] MEDS ORDERED: HOME MED LIST COMPLETE! XX SCH (13:55)
[2024-06-10] MEDS: ACETAMINOPHEN 325 MG TAB PO PRN (14:37)
[2024-06-10 15:05] VITALS: BP 127/89; TEMP 99.9; O2SAT 99
[2024-06-10 15:18] LABS: INR 1.23; PROTHROMBIN TIME 15.1 SECONDS (12.5-14.5)
[2024-06-10 15:27] LABS: HEMOGLOBIN A1c 6.4 % (4.0-6.0)
[2024-06-10 15:33] LABS: ALBUMIN 3.7 G/DL (3.2-5.2); BILIRUBIN,DIRECT 0.3 MG/DL (<0.4); CHOLESTEROL RISK RATIO 4.32 (<5); HDL CHOLESTEROL 48.6 MG/DL (>40); LDL CHOLESTEROL 149.8 MG/DL (<100); NON-HDL-C 161.4 MG/DL; TOTAL PROTEIN 7.1 G/DL (5.7-8.2)
[2024-06-10] MEDS ORDERED: ALBUTEROL 90 MCG/ACT 8GM HFA INHALER INH PRN (18:40)
[2024-06-10] MEDS ORDERED: FLUTICASONE PROP 0.05% NASAL SPRAY 16 GM (FLONASE) NARES PRN (18:40)
[2024-06-10] MEDS: COMBIVENT RESPIMAT 100-20MCG INHALER 4GM INH SCH (20:00)
[2024-06-10] MEDS: ADVAIR HFA 230/21MCG INHALER INH SCH (20:00)
[2024-06-10] MEDS ORDERED: ISOVUE-370 76% 100ML VIAL As Ordered ONE (20:42)
[2024-06-10 22:00] VITALS: BP 174/80; TEMP 98.1; O2SAT 94
[2024-06-10] MEDS: ATORVASTATIN 20 MG TAB PO SCH (22:10)
[2024-06-10] MEDS: DOCUSATE SODIUM 100MG CAPSULE PO SCH (22:10)
[2024-06-11 03:10] VITALS: BP 148/72; TEMP 98.2; O2SAT 91
[2024-06-11] MEDS: ASPIRIN 81MG ENTERIC TABLET PO SCH (09:06)
[2024-06-11] MEDS: SERTRALINE HCL 25 MG TABLET PO SCH (09:06)
[2024-06-11] MEDS: CETIRIZINE (ZyrTEC) 10 MG TAB PO SCH (09:06)
[2024-06-11] MEDS: EZETIMIBE 10MG TABLET (ZETIA) PO SCH (09:06)
[2024-06-11] MEDS: FAMOTIDINE 20 MG TAB PO SCH (09:06)
[2024-06-11] MEDS: DABIGATRAN ETEXILATE 75 MG CAP (PRADAXA) PO SCH (11:02)
[2024-06-11] MEDS: POTASSIUM CHLORIDE 10MEQ SR TABLET PO SCH (11:02)
[2024-06-11 12:00] VITALS: BP 156/77; TEMP 97.7; O2SAT 93
[2024-06-11 20:25] VITALS: BP 161/89; TEMP 97.7; O2SAT 92
[2024-06-12 04:02] VITALS: BP 174/91; TEMP 97.3; O2SAT 99
[2024-06-12] MEDS: LOSARTAN 50MG TABLET PO SCH (09:43)
[2024-06-12] MEDS: **hydrALAZINE** 10 MG TAB PO SCH (09:44)
[2024-06-12] MEDS: TORSEMIDE 20 MG TAB PO SCH (09:45)
[2024-06-12] MEDS: dilTIAZem 60 MG TAB PO SCH (11:20)
[2024-06-12] MEDS: dilTIAZem **CD** 180MG CAP PO SCH (11:21)
[2024-06-12 13:01] VITALS: BP 125/57; TEMP 97.7; O2SAT 91
[2024-06-12 18:54] VITALS: BP 148/57
[2024-06-12 20:30] VITALS: BP 137/59; TEMP 97.9; O2SAT 94
[2024-06-13 03:04] VITALS: BP 159/73; TEMP 97.5; O2SAT 96
[2024-06-13 09:49] VITALS: BP 137/66
[2024-06-13] MEDS ORDERED: ATOR80TA59 PO (10:02)
[2024-06-13 12:00] VITALS: BP 116/52; TEMP 97.3; O2SAT 100
== END 2024-06-13 12:51 | disposition home or self-care (01) | DRG 64 ==
LOC: M ED 08:09 → M ED INP 08:10 → M MSPAV 14:51 → OBSVTOIN 06-12 10:16
PROVIDERS: ADMIT Student in an Organized Health Care Education/Training Program; ATTEND Student in an Organized Health Care Education/Training Program
PROC: B246ZZZ Ultrasonography of Right and Left Heart (ICD-10-PCS; principal; 2024-06-11)
DX: I63.522 Cerebral infarction due to unspecified occlusion or stenosis of left anterior cerebral artery (principal); G93.41 Metabolic encephalopathy; U07.1 COVID-19; I50.32 Chronic diastolic (congestive) heart failure; I11.0 Hypertensive heart disease with heart failure; E78.5 Hyperlipidemia, unspecified; J44.9 Chronic obstructive pulmonary disease, unspecified; J45.909 Unspecified asthma, uncomplicated; I48.91 Unspecified atrial fibrillation; R73.03 Prediabetes; R53.1 Weakness; F32.A Depression, unspecified; I69.311 Memory deficit following cerebral infarction; K21.9 Gastro-esophageal reflux disease without esophagitis; Z66 Do not resuscitate; Z79.82 Long term (current) use of aspirin; Z79.84 Long term (current) use of oral hypoglycemic drugs; Z79.899 Other long term (current) drug therapy; Z88.2 Allergy status to sulfonamides; Z88.5 Allergy status to narcotic agent

== ENCOUNTER → 2024-10-22 | Outpatient (CLI) | payer MEDICARE, OTHER ==
[~2024-10-22] MED LIST changes: -ADV250INH INH; +ADVA1AER9 INH; +ALBU0.63 INH; +ASPI81TA26 PO; +ATOR80TA59 PO; +TORS20TA2 PO
== END ==
LOC: M WHC 10:57
PROVIDERS: ATTEND Internal Medicine
DX: Z12.31 Encounter for screening mammogram for malignant neoplasm of breast (principal)

== ENCOUNTER 2024-10-30 03:14 | Inpatient (IN) | payer MEDICARE, OTHER ==
[2024-10-30] VITALS (25 sets, daily range): BP systolic 166–227; BP diastolic 80–107; TEMP 97–99; O2SAT 93–96
[~2024-10-30] VITALS: Ht 167.6 cm; Wt 92.8 kg
[2024-10-30] MEDS ORDERED: ISOVUE-370 76% 100ML VIAL As Ordered ONE (03:29)
[2024-10-30 03:43] LABS: BASO # 0.1 10^3/uL (0.0-0.2); BASO % 0.9 % (0.0-1.0); EOS # 0.3 10^3/uL (0.0-0.5); HEMATOCRIT 43.5 % (36.0-47.0); HEMOGLOBIN 14.5 g/dl (12.0-15.5); LYMPH # 1.8 10^3/uL (1.5-5.0); LYMPH % 32.4 % (24.0-44.0); MEAN CORPUSCULAR HEMOGLOBIN 29.8 pg (27.0-33.0); MEAN CORPUSCULAR HGB CONC 33.3 g/dl (32.0-36.5); MEAN CORPUSCULAR VOLUME 89.5 fl (80.0-96.0); MONO # 0.4 10^3/uL (0.0-0.8); MONO % 8.1 % (2.0-8.0); NEUTROPHILS # 2.9 10^3/uL (1.5-8.5); NEUTROPHILS % 53.4 % (36.0-66.0); PLATELET COUNT, AUTOMATED 259 10^3/uL (150-450); RED BLOOD COUNT 4.86 10^6/uL (4.00-5.40); WHITE BLOOD COUNT 5.4 10^3/uL (4.0-10.0)
[2024-10-30 03:59] LABS: INR 1.23; PARTIAL THROMBOPLASTIN TIME 38.3 SECONDS (24.8-34.2); PROTHROMBIN TIME 15.7 SECONDS (12.5-14.5)
[2024-10-30 05:21] LABS: KETONE, URINE AUTO RFX NEGATIVE (NEGATIVE); LEUKOCYTE ESTERASE UR AUTO RFX NEGATIVE (NEGATIVE); NITRITE, URINE AUTO RFX NEGATIVE (NEGATIVE); RBC, URINE AUTO RFX 0 /HPF (0-3); SQUAM EPITHELIAL CELL UR AURFX 0 /HPF (0-6); WBC, URINE AUTO RFX 0 /HPF (0-3)
[2024-10-30] MEDS ORDERED: LORazepam 2 MG/ML 1ML VIAL IV PRN (05:35)
[2024-10-30 05:49] LABS: ERYTHROCYTE SEDIMENTATION RATE 48 mm/hr (0-30)
[2024-10-30 05:53] LABS: VENOUS BASE EXCESS 2.3 (-2.0-2.0); VENOUS HCO3 26.7 MMOL/L (23.0-27.0); VENOUS O2 SATURATION 98.3 % (60.0-80.0); VENOUS PARTIAL PRESSURE O2 122.8 mmHg (30.0-50.0); VENOUS PH 7.432 UNITS (7.330-7.430); VENOUS STANDARD HCO3 26.5 MMOL/L
[2024-10-30] MEDS ORDERED: ATOR80TA59 PO (06:08)
[2024-10-30] MEDS ORDERED: HOME MED LIST COMPLETE! XX SCH (06:10)
[2024-10-30] MEDS ORDERED: FLUTICASONE PROP 0.05% NASAL SPRAY 16 GM (FLONASE) NARES PRN (06:20)
[2024-10-30] MEDS ORDERED: ALBUTEROL 90 MCG/ACT 8GM HFA INHALER INH PRN (06:20)
[2024-10-30 06:27] LABS: C REACTIVE PROTEIN QUANTITATIV < 0.50 MG/DL (<1.0); CPK CREATINE PHOSPHOKINASE 72 U/L (34-145)
[2024-10-30 06:28] LABS: ALBUMIN 3.4 G/DL (3.2-5.2); ALKALINE PHOSPHATASE 62 U/L (35-104); ALT/SGPT 17 U/L (7.0-40); AST/SGOT 18 U/L (<34); BILIRUBIN,TOTAL 0.5 MG/DL (0.3-1.2); BLOOD UREA NITROGEN 17 MG/DL (9-23); CALCIUM LEVEL 8.3 MG/DL (8.3-10.6); CARBON DIOXIDE LEVEL 27 MMOL/L (20-31); CHLORIDE LEVEL 103 MMOL/L (98-107); CHOLESTEROL LEVEL 192 MG/DL (<200); CHOLESTEROL RISK RATIO 4.22 (<5); CK-MB VALUE MASS 1.5 NG/ML (<3.6); CREATININE FOR GFR 0.97 MG/DL (0.55-1.30); GLOMERULAR FILTRATION RATE 58.8 (>32); GLUCOSE, FASTING 148 MG/DL (74-106); HDL CHOLESTEROL 45.4 MG/DL (>40); LDL CHOLESTEROL 126.6 MG/DL (<100); MB/CK RELATIVE INDEX 2.08 (< OR =4); NON-HDL-C 146.6 MG/DL; POTASSIUM SERUM 3.8 MMOL/L (3.5-5.1); SODIUM LEVEL 139 MMOL/L (136-145); TOTAL PROTEIN 6.7 G/DL (5.7-8.2); TRIGLYCERIDES LEVEL 100 MG/DL (<150)
[2024-10-30] MEDS: DABIGATRAN ETEXILATE 75 MG CAP (PRADAXA) PO SCH (07:00)
[2024-10-30 07:42] LABS: THYROID STIMULATING HORMONE 4.197 uIU/ML (0.55-4.78)
[2024-10-30 08:12] LABS: HEMOGLOBIN A1c 6.5 % (4.0-6.0)
[2024-10-30] MEDS: PANTOPRAZOLE 40MG VIAL IV SCH (08:22)
[2024-10-30] MEDS: ATORVASTATIN 20 MG TAB PO SCH (08:23)
[2024-10-30] MEDS: ASPIRIN 81MG CHEW TABLET PO SCH (08:26)
[2024-10-30] MEDS: TORSEMIDE 20 MG TAB PO SCH (08:28)
[2024-10-30] MEDS: SERTRALINE HCL 25 MG TABLET PO SCH (08:28)
[2024-10-30] MEDS: POTASSIUM CHLORIDE 10MEQ SR TABLET PO SCH (08:29)
[2024-10-30] MEDS: dilTIAZem **CD** 180MG CAP PO SCH (08:29)
[2024-10-30] MEDS: LABETALOL 100MG/20ML VIAL IV PRN (08:31)
[2024-10-30] MEDS: hydrALAZINE 20MG/ML 1ML VIAL IV ONE (16:49)
[2024-10-30] MEDS ORDERED: METOPROLOL TART 12.5 MG PER 1/2 TAB PO SCH (18:00)
[2024-10-30] MEDS: NYSTATIN 100,000 UNITS/GM TOPICAL PWD 15GM TOP SCH (20:11)
[2024-10-30] MEDS: METOPROLOL TART 25 MG TABLET PO SCH (23:08)
[2024-10-31] VITALS (34 sets, daily range): BP systolic 148–182; BP diastolic 68–98; TEMP 97.9–98.4; O2SAT 92–97
[2024-10-31 06:20] LABS: HEMATOCRIT 45.2 % (36.0-47.0); HEMOGLOBIN 14.6 g/dl (12.0-15.5); MEAN CORPUSCULAR HEMOGLOBIN 28.9 pg (27.0-33.0); MEAN CORPUSCULAR HGB CONC 32.3 g/dl (32.0-36.5); MEAN CORPUSCULAR VOLUME 89.5 fl (80.0-96.0); PLATELET COUNT, AUTOMATED 284 10^3/uL (150-450); RED BLOOD COUNT 5.05 10^6/uL (4.00-5.40); WHITE BLOOD COUNT 6.1 10^3/uL (4.0-10.0)
[2024-10-31 06:51] LABS: ALBUMIN 3.3 G/DL (3.2-5.2); BILIRUBIN,TOTAL 0.8 MG/DL (0.3-1.2); CALCIUM LEVEL 8.8 MG/DL (8.3-10.6); CREATININE FOR GFR 1.03 MG/DL (0.55-1.30); GLOMERULAR FILTRATION RATE 54.9 (>32); MAGNESIUM LEVEL 2.2 MG/DL (1.8-2.4); POTASSIUM SERUM 4.4 MMOL/L (3.5-5.1); TOTAL PROTEIN 6.7 G/DL (5.7-8.2)
[2024-10-31] MEDS: hydrALAZINE 20MG/ML 1ML VIAL IV PRN (16:53)
[2024-10-31] MEDS: **hydrALAZINE** 10 MG TAB PO SCH (20:28)
[2024-11-01] VITALS (33 sets, daily range): BP systolic 126–162; BP diastolic 59–98; TEMP 97.6–98.9; O2SAT 90–96
[2024-11-01 07:04] LABS: HEMATOCRIT 45.3 % (36.0-47.0); HEMOGLOBIN 15.1 g/dl (12.0-15.5); MEAN CORPUSCULAR HEMOGLOBIN 29.4 pg (27.0-33.0); MEAN CORPUSCULAR HGB CONC 33.3 g/dl (32.0-36.5); MEAN CORPUSCULAR VOLUME 88.3 fl (80.0-96.0); PLATELET COUNT, AUTOMATED 268 10^3/uL (150-450); RED BLOOD COUNT 5.13 10^6/uL (4.00-5.40)
[2024-11-01 07:31] LABS: CALCIUM LEVEL 8.6 MG/DL (8.3-10.6); CREATININE FOR GFR 1.24 MG/DL (0.55-1.30); GLOMERULAR FILTRATION RATE 44.3 (>32); POTASSIUM SERUM 4.3 MMOL/L (3.5-5.1)
[2024-11-01] MEDS: guaiFENesin ER TABLET 600 MG TAB PO SCH (08:50)
[2024-11-01] MEDS: APIXABAN 5 MG TAB (ELIQUIS) PO SCH (22:28)
[2024-11-02] VITALS (31 sets, daily range): BP systolic 123–173; BP diastolic 64–90; TEMP 97.2–97.8; O2SAT 92–96
[2024-11-02] MEDS: LIDOCAINE 5% (LIDODERM) PATCH TD ONE (12:09)
[2024-11-02] MEDS: ACETAMINOPHEN 325 MG TAB PO PRN (18:55)
[2024-11-03] VITALS (20 sets, daily range): BP systolic 128–170; BP diastolic 64–80; TEMP 96.3–98; O2SAT 93–96
[2024-11-03] MEDS: LIDOCAINE 5% (LIDODERM) PATCH TD SCH (10:01)
[2024-11-04 00:10] VITALS: BP 160/100
[2024-11-04 04:19] VITALS: BP 168/77; TEMP 97.9; O2SAT 95
[2024-11-04 07:37] VITALS: BP 180/96; TEMP 98.2; O2SAT 96
[2024-11-04 09:50] VITALS: BP 156/70
[2024-11-04 09:58] VITALS: BP 156/70
[2024-11-04] MEDS: METOPROLOL TART 25 MG TABLET PO SCH (09:58)
[2024-11-04 12:08] VITALS: BP 140/73
[2024-11-04] MEDS ORDERED: BISACODYL 10MG SUPP PR PRN (12:20)
[2024-11-04] MEDS: BISACODYL 10MG SUPP PR ONE (12:38)
[2024-11-04] MEDS ORDERED: ELIQ5TAB PO (14:00)
[2024-11-04] MEDS ORDERED: SENOKOT S TAB PO SCH (21:00)
== END 2024-11-04 15:51 | DRG 65 ==
LOC: M ED 03:14 → EDBD 03:14 → M ED INP 05:31 → M PCU 11:44
PROVIDERS: ADMIT Student in an Organized Health Care Education/Training Program; ATTEND Student in an Organized Health Care Education/Training Program
PROC: B246ZZZ Ultrasonography of Right and Left Heart (ICD-10-PCS; principal; 2024-11-02)
DX: I63.9 Cerebral infarction, unspecified (principal); I50.32 Chronic diastolic (congestive) heart failure; I48.19 Other persistent atrial fibrillation; G81.91 Hemiplegia, unspecified affecting right dominant side; I16.9 Hypertensive crisis, unspecified; I11.0 Hypertensive heart disease with heart failure; E78.5 Hyperlipidemia, unspecified; J44.9 Chronic obstructive pulmonary disease, unspecified; J45.909 Unspecified asthma, uncomplicated; F32.A Depression, unspecified; Z90.49 Acquired absence of other specified parts of digestive tract; Z98.49 Cataract extraction status, unspecified eye; E11.9 Type 2 diabetes mellitus without complications; K21.9 Gastro-esophageal reflux disease without esophagitis; Z66 Do not resuscitate; Z79.84 Long term (current) use of oral hypoglycemic drugs; Z79.899 Other long term (current) drug therapy; Z88.2 Allergy status to sulfonamides; Z88.5 Allergy status to narcotic agent

== ENCOUNTER 2024-11-04 14:07 | Inpatient (IN) | payer MEDICARE, OTHER ==
[~2024-11-04] VITALS: Ht 167.6 cm; Wt 89.2 kg
[~2024-11-04 14:07] MED LIST changes: +ELIQ5TAB PO
[2024-11-04] MEDS ORDERED: SIMETHICONE 80MG CHEW TAB PO PRN (14:15)
[2024-11-04] MEDS ORDERED: ONDANSETRON 4MG ORAL DISINTEGRATING TAB PO PRN (14:15)
[2024-11-04] MEDS ORDERED: BISACODYL 5MG TAB PO PRN (14:15)
[2024-11-04] MEDS ORDERED: MAALOX 30 ML SUSP *UDC PO PRN (14:15)
[2024-11-04] MEDS ORDERED: BISACODYL 10MG SUPP PR PRN (14:15)
[2024-11-04] MEDS ORDERED: MOM 30ML SUSPENSION UDC PO PRN (14:15)
[2024-11-04] MEDS ORDERED: FLUTICASONE PROP 0.05% NASAL SPRAY 16 GM (FLONASE) NARES PRN (14:30)
[2024-11-04] MEDS ORDERED: ALBUTEROL SULFATE 2.5MG/0.5ML INH CONCENTRATE NEB SOLN INH PRN (14:30)
[2024-11-04 15:55] VITALS: BP 139/63; TEMP 97.9; O2SAT 94
[2024-11-04] MEDS: METOPROLOL TART 25 MG TABLET PO SCH (17:17)
[2024-11-04] MEDS: IPRATROPIUM 0.5MG/ALBUTEROL 2.5MG INH SOL UD 3ML NEB SCH (19:49)
[2024-11-04 20:30] VITALS: BP 136/69; TEMP 96.5; O2SAT 93
[2024-11-04] MEDS: SENNA 8.6 MG TAB (SENOKOT) PO SCH (20:50)
[2024-11-04] MEDS: **hydrALAZINE** 10 MG TAB PO SCH (20:50)
[2024-11-04] MEDS: DOCUSATE SODIUM 100MG CAPSULE PO SCH (20:50)
[2024-11-04] MEDS: APIXABAN 5 MG TAB (ELIQUIS) PO SCH (20:50)
[2024-11-04] MEDS: NYSTATIN 100,000 UNITS/GM TOPICAL PWD 15GM TOP SCH (20:52)
[2024-11-04] MEDS: guaiFENesin SYRUP 200MG 10ML UDC PO PRN (21:05)
[2024-11-05 00:38] VITALS: BP 129/73
[2024-11-05 04:48] VITALS: BP 167/81; TEMP 97.9; O2SAT 91
[2024-11-05 06:36] LABS: BASO # 0.1 10^3/uL (0.0-0.2); BASO % 0.9 % (0.0-1.0); EOS # 0.2 10^3/uL (0.0-0.5); EOS % 3.4 % (0.0-3.0); HEMATOCRIT 42.5 % (36.0-47.0); HEMOGLOBIN 14.5 g/dl (12.0-15.5); LYMPH # 1.7 10^3/uL (1.5-5.0); LYMPH % 31.3 % (24.0-44.0); MEAN CORPUSCULAR HEMOGLOBIN 30.1 pg (27.0-33.0); MEAN CORPUSCULAR HGB CONC 34.1 g/dl (32.0-36.5); MEAN CORPUSCULAR VOLUME 88.2 fl (80.0-96.0); MONO # 0.4 10^3/uL (0.0-0.8); MONO % 7.7 % (2.0-8.0); NEUTROPHILS # 3.1 10^3/uL (1.5-8.5); NEUTROPHILS % 56.5 % (36.0-66.0); PLATELET COUNT, AUTOMATED 259 10^3/uL (150-450); RED BLOOD COUNT 4.82 10^6/uL (4.00-5.40); WHITE BLOOD COUNT 5.6 10^3/uL (4.0-10.0)
[2024-11-05 07:14] LABS: ALBUMIN 2.9 G/DL (3.2-5.2); BILIRUBIN,TOTAL 0.6 MG/DL (0.3-1.2); CALCIUM LEVEL 8.3 MG/DL (8.3-10.6); CREATININE FOR GFR 1.13 MG/DL (0.55-1.30); GLOMERULAR FILTRATION RATE 49.3 (>32); POTASSIUM SERUM 4.4 MMOL/L (3.5-5.1); TOTAL PROTEIN 6.2 G/DL (5.7-8.2)
[2024-11-05] MEDS: SERTRALINE HCL 25 MG TABLET PO SCH (09:24)
[2024-11-05] MEDS: metFORMIN (GLUCOPHAGE) 500MG TAB PO SCH (09:24)
[2024-11-05] MEDS: MIRALAX *UNIT DOSE* 17GM PACKET PO SCH (09:24)
[2024-11-05] MEDS: POTASSIUM CHLORIDE 10MEQ SR TABLET PO SCH (09:24)
[2024-11-05] MEDS: LIDOCAINE 5% (LIDODERM) PATCH TD SCH (09:24)
[2024-11-05] MEDS: ATORVASTATIN 20 MG TAB PO SCH (09:25)
[2024-11-05] MEDS: ASPIRIN 81MG CHEW TABLET PO SCH (09:25)
[2024-11-05] MEDS: PANTOPRAZOLE 40MG TAB (PROTONIX) PO SCH (09:25)
[2024-11-05] MEDS: TORSEMIDE 20 MG TAB PO SCH (09:25)
[2024-11-05] MEDS: dilTIAZem **CD** 180MG CAP PO SCH (09:32)
[2024-11-05 12:00] VITALS: BP 148/67; TEMP 97.5; O2SAT 94
[2024-11-05 19:21] VITALS: BP 135/65; TEMP 98; O2SAT 94
[2024-11-06 00:46] VITALS: BP 142/74; TEMP 98.2; O2SAT 96
[2024-11-06 04:24] VITALS: BP 141/67; TEMP 97.9; O2SAT 96
[2024-11-06 12:03] VITALS: BP 154/68; TEMP 98.2; O2SAT 93
[2024-11-06 20:00] VITALS: BP 137/62; TEMP 97.3; O2SAT 95
[2024-11-07 04:00] VITALS: BP 186/84; TEMP 98.2; O2SAT 96
[2024-11-07] MEDS: **hydrALAZINE HCL** 25 MG TAB PO PRN (06:06)
[2024-11-07 12:00] VITALS: BP 127/59; TEMP 97.3; O2SAT 95
[2024-11-07 20:00] VITALS: BP 123/58; TEMP 98.1; O2SAT 95
[2024-11-07] MEDS: ACETAMINOPHEN 500 MG TAB PO PRN (20:20)
[2024-11-08 04:00] VITALS: BP 126/70; TEMP 96.6; O2SAT 94
[2024-11-08 12:36] VITALS: BP 148/80; TEMP 97.6; O2SAT 95
[2024-11-08 19:59] VITALS: BP 168/82; TEMP 96.9; O2SAT 95
[2024-11-09] VITALS (7 sets, daily range): BP systolic 136–176; BP diastolic 53–80; TEMP 97.5–97.7; O2SAT 94–96
[2024-11-10 05:16] VITALS: BP 122/82; TEMP 96.9; O2SAT 93
[2024-11-10 12:00] VITALS: BP 161/87; TEMP 97.2; O2SAT 96
[2024-11-10] MEDS: CYCLOBENZAPRINE 10MG TABLET PO PRN (18:02)
[2024-11-10 20:00] VITALS: BP 160/80; TEMP 97.8; O2SAT 95
[2024-11-11 12:00] VITALS: BP 122/60; TEMP 97.2; O2SAT 96
[2024-11-11 20:36] VITALS: BP 128/72; TEMP 96.9; O2SAT 95
[2024-11-12 04:47] VITALS: BP 178/78; TEMP 97; O2SAT 94
[2024-11-12] MEDS ORDERED: LIDOCAINE 5% (LIDODERM) PATCH TD PRN (11:55)
[2024-11-12 12:00] VITALS: BP 136/64; TEMP 97.7; O2SAT 96
[2024-11-13 00:30] VITALS: BP 126/61
[2024-11-13 04:08] VITALS: BP 138/66; TEMP 97.7; O2SAT 94
[2024-11-13 12:02] VITALS: BP 148/70; TEMP 97.4; O2SAT 94
[2024-11-13 18:13] LABS: KETONE, URINE AUTO RFX NEGATIVE (NEGATIVE); MUCUS, URINE RFX SMALL (NEGATIVE); NITRITE, URINE AUTO RFX NEGATIVE (NEGATIVE); RBC, URINE AUTO RFX 0 /HPF (0-3); SQUAM EPITHELIAL CELL UR AURFX 0 /HPF (0-6); WBC, URINE AUTO RFX 5 /HPF (0-3)
[2024-11-13 18:14] LABS: LEUKOCYTE ESTERASE UR AUTO RFX 1+ (NEGATIVE)
[2024-11-13 20:00] VITALS: BP 154/68; TEMP 98.3; O2SAT 94
[2024-11-14 05:58] VITALS: BP 148/72; TEMP 98.1; O2SAT 96
[2024-11-14 08:00] VITALS: BP 177/74; TEMP 97.3; O2SAT 96
[2024-11-14] MEDS ORDERED: PHENAZOPYRIDINE 100 MG TAB PO SCH (10:25)
[2024-11-14] MEDS: FOSFOMYCIN TROMETHAMINE 3 GM POWDER PACKET (MONUROL) PO ONE (11:57)
[2024-11-14 12:00] VITALS: BP 145/62; TEMP 97.6; O2SAT 96
[2024-11-14 12:13] LABS: BASO # 0.1 10^3/uL (0.0-0.2); BASO % 0.9 % (0.0-1.0); EOS # 0.2 10^3/uL (0.0-0.5); HEMATOCRIT 44.8 % (36.0-47.0); HEMOGLOBIN 14.8 g/dl (12.0-15.5); LYMPH # 1.3 10^3/uL (1.5-5.0); LYMPH % 16.8 % (24.0-44.0); MEAN CORPUSCULAR VOLUME 90.9 fl (80.0-96.0); MONO # 0.5 10^3/uL (0.0-0.8); MONO % 6.3 % (2.0-8.0); NEUTROPHILS # 5.5 10^3/uL (1.5-8.5); NEUTROPHILS % 73.7 % (36.0-66.0); PLATELET COUNT, AUTOMATED 217 10^3/uL (150-450); RED BLOOD COUNT 4.93 10^6/uL (4.00-5.40); WHITE BLOOD COUNT 7.5 10^3/uL (4.0-10.0)
[2024-11-14 12:24] LABS: ERYTHROCYTE SEDIMENTATION RATE 31 mm/hr (0-30)
[2024-11-14 12:38] LABS: ALBUMIN 3.4 G/DL (3.2-5.2); ALKALINE PHOSPHATASE 65 U/L (35-104); ALT/SGPT 22 U/L (7.0-40); AST/SGOT 26 U/L (<34); BILIRUBIN,TOTAL 0.5 MG/DL (0.3-1.2); BLOOD UREA NITROGEN 21 MG/DL (9-23); C REACTIVE PROTEIN QUANTITATIV < 0.50 MG/DL (<1.0); CALCIUM LEVEL 9.1 MG/DL (8.3-10.6); CARBON DIOXIDE LEVEL 30 MMOL/L (20-31); CHLORIDE LEVEL 96 MMOL/L (98-107); CREATININE FOR GFR 1.05 MG/DL (0.55-1.30); GLOMERULAR FILTRATION RATE 53.7 (>32); GLUCOSE, FASTING 186 MG/DL (74-106); POTASSIUM SERUM 4.6 MMOL/L (3.5-5.1); SODIUM LEVEL 136 MMOL/L (136-145); TOTAL PROTEIN 6.7 G/DL (5.7-8.2)
[2024-11-14 12:44] LABS: PROCALCITONIN <0.04 ng/ml
[2024-11-14 20:19] VITALS: BP 152/74; TEMP 97.3; O2SAT 96
[2024-11-14 23:21] VITALS: BP 142/66
[2024-11-15] VITALS (7 sets, daily range): BP systolic 130–190; BP diastolic 64–93; TEMP 97.7–97.8; O2SAT 69–97
[2024-11-16 04:21] VITALS: BP 144/76; TEMP 97.4; O2SAT 94
[2024-11-16 06:12] VITALS: BP 146/74
[2024-11-16 12:00] VITALS: BP 166/80; TEMP 97.7; O2SAT 94
[2024-11-16 20:00] VITALS: BP 166/69; TEMP 97.7; O2SAT 95
[2024-11-16] MEDS: TAMSULOSIN 0.4 MG CAP PO SCH (20:14)
[2024-11-17 04:00] VITALS: BP 155/70; TEMP 97; O2SAT 95
[2024-11-17 12:00] VITALS: BP 160/70; TEMP 97; O2SAT 97
[2024-11-17 20:00] VITALS: BP 155/69; TEMP 97.1; O2SAT 95
[2024-11-18 04:00] VITALS: BP 164/76; TEMP 97.2; O2SAT 95
[2024-11-18 06:00] VITALS: BP 142/72
[2024-11-18 12:35] VITALS: BP 135/72; TEMP 97.2; O2SAT 99
[2024-11-18 17:08] VITALS: BP 145/70
[2024-11-18 20:00] VITALS: BP 138/60; TEMP 97.3; O2SAT 96
[2024-11-19 04:00] VITALS: BP 139/80; TEMP 96.8; O2SAT 95
[2024-11-19 07:38] VITALS: BP 140/72
[2024-11-19] MEDS ORDERED: LOPERAMIDE 2 MG CAPLET PO PRN (11:25)
[2024-11-19 11:49] VITALS: BP 140/65; TEMP 98; O2SAT 97
[2024-11-19] MEDS: LOPERAMIDE 2 MG CAPLET PO ONE (11:51)
[2024-11-19 17:11] VITALS: BP 145/70
[2024-11-19 20:24] VITALS: BP 164/92; TEMP 98.5; O2SAT 97
[2024-11-20 05:35] VITALS: BP 148/70; TEMP 99; O2SAT 95
[2024-11-20 12:00] VITALS: BP 127/60; TEMP 97.4; O2SAT 96
[2024-11-20 20:00] VITALS: BP 159/66; TEMP 97.5; O2SAT 95
[2024-11-21 04:00] VITALS: BP 161/72; TEMP 97.3; O2SAT 95
[2024-11-21 12:00] VITALS: BP 134/72; TEMP 98.9; O2SAT 97
[2024-11-21 20:00] VITALS: BP 170/82; TEMP 97; O2SAT 96
[2024-11-22 01:07] VITALS: BP 137/66
[2024-11-22 04:00] VITALS: BP 166/69; TEMP 97.3; O2SAT 95
[2024-11-22 12:00] VITALS: BP 138/64; TEMP 97.8; O2SAT 92
[2024-11-22 20:20] VITALS: BP 184/79; TEMP 97.2; O2SAT 95
[2024-11-22 23:37] VITALS: BP 161/69
[2024-11-23 04:23] VITALS: BP 182/79; TEMP 97.2; O2SAT 93
[2024-11-23 07:20] VITALS: BP 170/82
[2024-11-23 08:30] VITALS: BP 132/70
[2024-11-23 12:00] VITALS: BP 141/67; TEMP 97.7; O2SAT 97
[2024-11-23 20:00] VITALS: BP 138/64; TEMP 97.3; O2SAT 96
[2024-11-23 23:20] VITALS: BP 132/62
[2024-11-24 04:00] VITALS: BP 128/58; TEMP 97.7; O2SAT 95
[2024-11-24 05:40] VITALS: BP 138/68
[2024-11-24] MEDS: DOCUSATE SODIUM 100MG CAPSULE PO SCH (08:43)
[2024-11-24 12:18] VITALS: BP 159/69; TEMP 97.4; O2SAT 97
[2024-11-24 19:55] VITALS: BP 162/72; TEMP 97.2; O2SAT 95
[2024-11-24] MEDS: SENNA 8.6 MG TAB (SENOKOT) PO SCH (20:34)
[2024-11-25 03:20] VITALS: BP 142/62; TEMP 97.8; O2SAT 95
[2024-11-25 09:15] VITALS: BP 151/67; TEMP 97.1; O2SAT 99
[2024-11-25 12:00] VITALS: BP 148/74; TEMP 97.4; O2SAT 96
[2024-11-25] MEDS ORDERED: NYST10006 TOP (15:13)
[2024-11-25] MEDS ORDERED: ACET-683 PO (15:13)
[2024-11-25] MEDS ORDERED: MIRA33506 PO (15:13)
[2024-11-25] MEDS ORDERED: HYDR-161 PO (15:13)
[2024-11-25] MEDS ORDERED: METO1TAB87 PO (15:13)
[2024-11-25] MEDS ORDERED: SENO8.6T5 PO (15:13)
[2024-11-25] MEDS ORDERED: ELIQ5TAB PO (15:13)
[2024-11-25] MEDS ORDERED: ASPI81CH8 PO (15:13)
[2024-11-25] MEDS ORDERED: CYCL10TA20 PO (15:13)
[2024-11-25] MEDS ORDERED: PANT40TA29 PO (15:13)
[2024-11-25] MEDS ORDERED: CARD180C4 PO (15:13)
[2024-11-25] MEDS ORDERED: COLA100C5 PO (15:13)
[2024-11-25 17:29] VITALS: BP 188/74
[2024-11-25 17:44] VITALS: BP 158/66
[2024-11-25 20:00] VITALS: BP 142/67; TEMP 98; O2SAT 95
[2024-11-26 05:00] VITALS: BP 167/79; TEMP 98.1; O2SAT 93
[2024-11-26 10:02] VITALS: BP 167/79
== END 2024-11-26 10:15 | disposition home health service (06) | DRG 65 ==
LOC: M PM&R 15:55
PROVIDERS: ADMIT Physical Medicine & Rehabilitation; ATTEND Physical Medicine & Rehabilitation
DX: I63.9 Cerebral infarction, unspecified (principal); G81.91 Hemiplegia, unspecified affecting right dominant side; I50.32 Chronic diastolic (congestive) heart failure; N39.0 Urinary tract infection, site not specified; Z66 Do not resuscitate; I11.0 Hypertensive heart disease with heart failure; E78.5 Hyperlipidemia, unspecified; J44.9 Chronic obstructive pulmonary disease, unspecified; J45.909 Unspecified asthma, uncomplicated; I48.91 Unspecified atrial fibrillation; F32.A Depression, unspecified; E11.9 Type 2 diabetes mellitus without complications; E87.6 Hypokalemia; Z86.73 Personal history of transient ischemic attack (TIA), and cerebral infarction without residual deficits; R13.10 Dysphagia, unspecified; I95.1 Orthostatic hypotension; Z74.1 Need for assistance with personal care; Z74.09 Other reduced mobility; K59.00 Constipation, unspecified; R50.9 Fever, unspecified; Z79.01 Long term (current) use of anticoagulants; Z79.84 Long term (current) use of oral hypoglycemic drugs; Z79.899 Other long term (current) drug therapy; Z88.2 Allergy status to sulfonamides; Z88.5 Allergy status to narcotic agent; R19.7 Diarrhea, unspecified